=== PATIENT | male | born 1995 | race Two or more races ===

== ENCOUNTER 2024-07-10 22:32 | Emergency (ER) | payer OTHER, SELFPAY ==
[2024-07-10 22:39] VITALS: BP 139/83; PULSE 94; RESP 18; TEMP 36.4; O2SAT 99
[2024-07-10 22:47] VITALS: BMI 34.2
[2024-07-10 23:05] VITALS: BP 138/84; PULSE 89; TEMP 36.7; O2SAT 98
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
== END 2024-07-10 23:15 ==
LOC: SERX 23:43
PROVIDERS: Emergency Provider Emergency Medicine
DX: Z02.89 Encounter for other administrative examinations (principal); F10.929 Alcohol use, unspecified with intoxication, unspecified
CPT/HCPCS: 99281